=== PATIENT | male | born 1985 ===

== ENCOUNTER 2018-10-13 21:50 | Observation (INO) | payer SELFPAY ==
[2018-10-13] MEDS ORDERED: Labetalol 5mg/ml (4ml) ONE (22:21)
[2018-10-13] MEDS ORDERED: Labetalol 25mg/5ml Syringe IVP STA (22:23)
[2018-10-13 22:37] LABS: BASO % 0.5 % (0.0-2.0); EOS # 0.1 K/uL (0.0-0.7); EOS % 1.5 % (0.0-4.0); HEMOGLOBIN 13.6 g/dL (12.0-18.0); LYMPH # 2.4 K/uL (1.0-4.3); LYMPH % 27.7 % (20.0-40.0); MEAN CORPUSCULAR HEMOGLOBIN 26.8 pg (27.0-31.0); MEAN CORPUSCULAR HGB CONC 33.1 g/dL (33.0-37.0); MEAN PLATELET VOLUME 9.1 fL (7.2-11.7); MONO # 0.5 K/uL (0.0-0.8); MONO % 6.2 % (0.0-10.0); NEUT # 5.6 K/uL (1.8-7.0); NEUT % 64.1 % (50.0-75.0); RBC 5.08 Mil/uL (4.40-5.90); RED CELL DISTRIBUTION WIDTH 13.7 % (11.5-14.5); WHITE BLOOD COUNT 8.8 K/uL (4.8-10.8)
[2018-10-13 22:48] LABS: ALB/GLOB RATIO 1.7 (1.0-2.1); ALBUMIN 4.7 g/dL (3.5-5.0); BLOOD UREA NITROGEN 24 mg/dL (9-20); CALCIUM 8.8 mg/dl (8.6-10.4); GFR NON-AFRICAN AMERICAN > 60
--- NOTE | 2018-10-13 22:56 | C.PDOC ---
History Of Present Illness 33 year old male with no prior PMHx, does not see a doctor, presents with intermittent bloody nose for the past 2 days. Patient began bleeding today at 4:45pm and did not resolve so called EMS. On arrival bleeding has resolved, he reports a headache but denies double vision, nausea, vomiting, or trouble breathing. Vitals show elevated blood pressure at 210/135, he states he has never been diagnosed with HTN. Time Seen by Provider: 10/13/18 22:16 Chief Complaint (Nursing): ENT Problem History Per: Patient History/Exam Limitations: None Onset/Duration Of Symptoms: Days, Intermittent Episodes Current Symptoms Are (Timing): Still Present Symptoms Have Been: Episodic Past Medical History Reviewed: Historical Data, Nursing Documentation, Vital Signs Vital Signs: Last Vital Signs Temp 98.2 F 10/13/18 21:59 Pulse 77 10/13/18 22:53 Resp 19 10/13/18 22:53 BP 177/115 H 10/13/18 22:53 Pulse Ox 97 10/13/18 22:53 Primary Care Provider: FAMILY PROVIDER,NO Family History: States: Unknown Family Hx - Social History Hx Alcohol Use: No Hx Substance Use: No - Immunization History Hx Influenza Vaccination: No Hx Pneumococcal Vaccination: No Review Of Systems Constitutional: Negative for: Fever, Chills Eyes: Negative for: Vision Change Cardiovascular: Negative for: Chest Pain, Palpitations Respiratory: Negative for: Shortness of Breath Gastrointestinal: Negative for: Nausea, Vomiting Neurological: Positive for: Headache Physical Exam - Physical Exam Appears: Non-toxic Skin: Normal Color, Warm Head: Atraumatic, Normacephalic Eye(s): bilateral: Normal Inspection Nose: Other (Dried blood in nostrils) Oral Mucosa: Moist Neck: Normal, Supple Chest: Symmetrical, No Tenderness Cardiovascular: Rhythm Regular Respiratory: Normal Breath Sounds, No Rales, No Rhonchi, No Wheezing Gastrointestinal/Abdominal: Soft, No Tenderness Neurological/Psych: Oriented x3, Normal Speech ED Course And Treatment - Laboratory Results Result Diagrams: 10/13/18 22:28 10/13/18 22:28 Lab Results: Total Bilirubin 1.0 mg/dL (0.2-1.3) 10/13/18 22:28 Total Protein 7.5 g/dL (6.3-8.3) 05/21/19 22:28 Albumin 4.7 g/dL (3.5-5.0) 10/13/18 22:28 Globulin 2.8 gm/dL (2.2-3.9) 10/13/18 22:28 Albumin/Globulin Ratio 1.7 (1.0-2.1) 10/13/18 22:28 Lab Interpretation: No Acute Changes ECG: Interpreted By Me ECG Rhythm: Sinus Rhythm (with left axis deviation), ST/T Changes (inversions laterall I, AVL, V5-6) ECG Interpretation: Abnormal O2 Sat by Pulse Oximetry: 97 (Room air) Pulse Ox Interpretation: Normal Progress Note: CT head, blood work, EKG, and urinalysis ordered. Labetalol administered. Reevaluation Time: 23:56 Reassessment Condition: Improved (BP decreased to 166/109 after labetolol but now increased to 177/115. CT pending.) - Physician Consult Information Physician Contacted: Kelly Vallejo Outcome Of Conversation: Patient to be admitted for management of hypertension with evidence of cardiac ischemia on EKG. Disposition - Disposition Disposition: HOSPITALIZED Disposition Time: 00:03 Condition: IMPROVED - Clinical Impression Clinical Impression: Hypertensive urgency, malignant, Epistaxis, Headache - Scribe Statement The provider has reviewed the documentation as recorded by the Scribkody Rivera All medical record entries made by the Ceceliaibkody were at my direction and personally dictated by me. I have reviewed the chart and agree that the record accurately reflects my personal performance of the history, physical exam, medical decision making, and the department course for this patient. I have also personally directed, reviewed, and agree with the discharge instructions and disposition.
[2018-10-13 23:10] LABS: ALT/SGPT 52 U/L (21-72); AST/SGOT 61 U/L (17-59)
[2018-10-14 00:42] LABS: URINE BILIRUBIN NEGATIVE (NEGATIVE); URINE BLOOD NEGATIVE (NEGATIVE); URINE CLARITY Clear (Clear); URINE COLOR Yellow (YELLOW); URINE GLUCOSE (UA) NORMAL (Normal); URINE LEUKOCYTE ESTERASE NEG Leu/uL (Negative); URINE PROTEIN 1+ mg/dL (NEGATIVE); URINE UROBILINOGEN NORMAL mg/dL (0.2-1.0)
[2018-10-14 01:16] LABS: BARBITURATES, UR NEGATIVE (NEGATIVE); BENZODIAZEPINES, UR NEGATIVE (NEGATIVE); OPIATES, UR NEGATIVE (NEGATIVE); PHENCYCLIDINE, UR NEGATIVE (NEGATIVE)
--- NOTE | 2018-10-14 02:10 | CP.PCM.HP ---
<Jensen Long - Last Filed: 10/14/18 02:10> History of Present Illness - History of Present Illness History of Present Illness: 33M with no PMHx, presents with intermittent bloody nose for the past 2 days. Patient began bleeding today at 4:45pm and did not resolve so called EMS. On arrival bleeding had resolved but then started again at around 9pm, he reports a headache. P states he has never been diagnosed with HTN. Pt does not take any home medications and does not follow up with a physician. Pt does not report taking any home remedies for the nose bleed, only tried applying pressure. Denies every having this happen to him before. 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 Allergies: denies Present on Admission - Present on Admission Any Indicators Present on Admission: No Review of Systems - Review of Systems All systems: reviewed and no additional remarkable complaints except (as per HPI) Past Patient History - Past Social History Smoking Status: Never Smoked - PSYCHIATRIC Hx Substance Use: No - SURGICAL HISTORY Hx Surgeries: No - ANESTHESIA Hx Anesthesia: No Meds Allergies/Adverse Reactions: Allergies Allergy/AdvReac Type Severity Reaction Status Date / Time No Known Allergies Allergy Unverified 10/13/18 22:03 Physical Exam - Constitutional Appears: Non-toxic, No Acute Distress - Head Exam Head Exam: ATRAUMATIC, NORMAL INSPECTION - Eye Exam Eye Exam: EOMI, Normal appearance. absent: Scleral icterus Pupil Exam: NORMAL ACCOMODATION, PERRL - ENT Exam ENT Exam: Mucous Membranes Moist Additional comments: no bleeding per nose turbinates clear, some dried blood noted in L side - Neck Exam Neck exam: Positive for: Normal Inspection - Respiratory Exam Respiratory Exam: Clear to Auscultation Bilateral. absent: Rales, Wheezes, Stridor - Cardiovascular Exam Cardiovascular Exam: RRR, +S1, +S2 - GI/Abdominal Exam GI & Abdominal Exam: Soft. absent: Organomegaly, Tenderness - Extremities Exam Extremities exam: Positive for: pedal pulses present. Negative for: pedal edema - Neurological Exam Neurological exam: Alert, CN II-XII Intact, Oriented x3 - Psychiatric Exam Psychiatric exam: Normal Affect, Normal Mood - Skin Skin Exam: Normal Color, Warm Results - Vital Signs Recent Vital Signs: Last Vital Signs Temp 98.2 F 10/13/18 21:59 Pulse 73 10/13/18 23:52 Resp 22 10/13/18 23:52 BP 161/111 H 10/13/18 23:52 Pulse Ox 97 10/14/18 00:04 - Labs Result Diagrams: 10/13/18 22:28 10/13/18 22:28 Labs: Laboratory Results - last 24 hr 10/13/18 10/13/18 10/14/18 22:28 22:28 00:35 WBC 8.8 RBC 5.08 Hgb 13.6 Hct 41.1 MCV 81.0 MCH 26.8 L MCHC 33.1 RDW 13.7 Plt Count 226 MPV 9.1 Neut % (Auto) 64.1 Lymph % (Auto) 27.7 Bay % (Auto) 6.2 Eos % (Auto) 1.5 Baso % (Auto) 0.5 Neut # (Auto) 5.6 Lymph # (Auto) 2.4 Bay # (Auto) 0.5 Eos # (Auto) 0.1 Baso # (Auto) 0.0 Sodium 141 Potassium 3.8 Chloride 103 Carbon Dioxide 23 Anion Gap 18 BUN 24 H Creatinine 0.9 Est GFR ( Amer) > 60 Est GFR (Non-Af Amer) > 60 Random Glucose 99 Calcium 8.8 Total Bilirubin 1.0 AST 61 H ALT 52 Alkaline Phosphatase 50 Total Protein 7.5 Albumin 4.7 Globulin 2.8 Albumin/Globulin Ratio 1.7 Urine Color Yellow Urine Clarity Clear Urine pH 5.0 Ur Specific [place] 1.019 Urine Protein 1+ H Urine Glucose (UA) Normal Urine Ketones Negative Urine Blood Negative Urine Nitrate Negative Urine Bilirubin Negative Urine Urobilinogen Normal Ur Leukocyte Esterase Neg Urine WBC (Auto) 1 Urine Opiates Screen Urine Methadone Screen Ur Barbiturates Screen Ur Phencyclidine Scrn Ur Amphetamines Screen U Benzodiazepines Scrn U Oth Cocaine Metabols U Cannabinoids Screen 10/14/18 00:35 WBC RBC Hgb Hct MCV MCH MCHC RDW Plt Count MPV Neut % (Auto) Lymph % (Auto) Bay % (Auto) Eos % (Auto) Baso % (Auto) Neut # (Auto) Lymph # (Auto) Bay # (Auto) Eos # (Auto) Baso # (Auto) Sodium Potassium Chloride Carbon Dioxide Anion Gap BUN Creatinine Est GFR ( Amer) Est GFR (Non-Af Amer) Random Glucose Calcium Total Bilirubin AST ALT Alkaline Phosphatase Total Protein Albumin Globulin Albumin/Globulin Ratio Urine Color Urine Clarity Urine pH Ur Specific [place] Urine Protein Urine Glucose (UA) Urine Ketones Urine Blood Urine Nitrate Urine Bilirubin Urine Urobilinogen Ur Leukocyte Esterase Urine WBC (Auto) Urine Opiates Screen Negative Urine Methadone Screen Negative Ur Barbiturates Screen Negative Ur Phencyclidine Scrn Negative Ur Amphetamines Screen Negative U Benzodiazepines Scrn Negative U Oth Cocaine Metabols Negative U Cannabinoids Screen Negative Assessment & Plan - Assessment and Plan (Free Text) Assessment: 33M admitted for Hypertensive Urgency Plan: Hypertensive Urgency -given labetalol 20 IVP in ED -BP now 170s/100s -Clonidine 0.1 q8 PO -monitor Nose Bleed -resolved -f/u coags Non Compliance -f/u TSH, Lipids, A1C PPx no anti coag at this time due to nose bleeds no GI ppx indicated HHD CK PGY1 d/w Dr Vallejo <Kelly Vallejo N - Last Filed: 10/14/18 04:49> Results - Vital Signs Recent Vital Signs: Last Vital Signs Temp 98.4 F 10/14/18 04:04 Pulse 67 10/14/18 04:04 Resp 20 10/14/18 04:04 BP 153/97 H 10/14/18 04:04 Pulse Ox 99 10/14/18 04:04 - Labs Result Diagrams: 10/13/18 22:28 10/13/18 22:28 Labs: Laboratory Results - last 24 hr 10/13/18 10/13/18 10/14/18 22:28 22:28 00:35 WBC 8.8 RBC 5.08 Hgb 13.6 Hct 41.1 MCV 81.0 MCH 26.8 L MCHC 33.1 RDW 13.7 Plt Count 226 MPV 9.1 Neut % (Auto) 64.1 Lymph % (Auto) 27.7 Bay % (Auto) 6.2 Eos % (Auto) 1.5 Baso % (Auto) 0.5 Neut # (Auto) 5.6 Lymph # (Auto) 2.4 Bay # (Auto) 0.5 Eos # (Auto) 0.1 Baso # (Auto) 0.0 Sodium 141 Potassium 3.8 Chloride 103 Carbon Dioxide 23 Anion Gap 18 BUN 24 H Creatinine 0.9 Est GFR ( Amer) > 60 Est GFR (Non-Af Amer) > 60 Random Glucose 99 Hemoglobin A1c Calcium 8.8 Total Bilirubin 1.0 AST 61 H ALT 52 Alkaline Phosphatase 50 Total Protein 7.5 Albumin 4.7 Globulin 2.8 Albumin/Globulin Ratio 1.7 Triglycerides Cholesterol LDL Cholesterol Direct HDL Cholesterol TSH 3rd Generation Urine Color Yellow Urine Clarity Clear Urine pH 5.0 Ur Specific [place] 1.019 Urine Protein 1+ H Urine Glucose (UA) Normal Urine Ketones Negative Urine Blood Negative Urine Nitrate Negative Urine Bilirubin Negative Urine Urobilinogen Normal Ur Leukocyte Esterase Neg Urine WBC (Auto) 1 Urine Opiates Screen Urine Methadone Screen Ur Barbiturates Screen Ur Phencyclidine Scrn Ur Amphetamines Screen U Benzodiazepines Scrn U Oth Cocaine Metabols U Cannabinoids Screen 10/14/18 10/14/18 10/14/18 00:35 02:46 02:46 WBC RBC Hgb Hct MCV MCH MCHC RDW Plt Count MPV Neut % (Auto) Lymph % (Auto) Bay % (Auto) Eos % (Auto) Baso % (Auto) Neut # (Auto) Lymph # (Auto) Bay # (Auto) Eos # (Auto) Baso # (Auto) Sodium Potassium Chloride Carbon Dioxide Anion Gap BUN Creatinine Est GFR ( Amer) Est GFR (Non-Af Amer) Random Glucose Hemoglobin A1c 5.9 Calcium Total Bilirubin AST ALT Alkaline Phosphatase Total Protein Albumin Globulin Albumin/Globulin Ratio Triglycerides 193 H Cholesterol 200 H LDL Cholesterol Direct 131 H HDL Cholesterol 33 TSH 3rd Generation 6.87 H Urine Color Urine Clarity Urine pH Ur Specific [place] Urine Protein Urine Glucose (UA) Urine Ketones Urine Blood Urine Nitrate Urine Bilirubin Urine Urobilinogen Ur Leukocyte Esterase Urine WBC (Auto) Urine Opiates Screen Negative Urine Methadone Screen Negative Ur Barbiturates Screen Negative Ur Phencyclidine Scrn Negative Ur Amphetamines Screen Negative U Benzodiazepines Scrn Negative U Oth Cocaine Metabols Negative U Cannabinoids Screen Negative Attending/Attestation - Attestation I have fully participated in the care of the patient.: Yes I have reviewed all pertinent clinical information: Yes Notes (Text): 10/14/18 04:48 pt was seen and managed with with resident by me.
[2018-10-14 04:23] VITALS: RESP 20
[2018-10-14 04:48] LABS: INR 1.1 (0.92-1.08); PARTIAL THROMBOPLASTIN TIME 33.4 SECONDS (21-34); PROTHROMBIN TIME 12.1 SECONDS (9.7-12.2)
[2018-10-14 06:37] LABS: ALB/GLOB RATIO 1.8 (1.0-2.1); ALBUMIN 4.2 g/dL (3.5-5.0); ALT/SGPT 48 U/L (21-72); AST/SGOT 35 U/L (17-59); BLOOD UREA NITROGEN 22 mg/dL (9-20); CALCIUM 8.3 mg/dl (8.6-10.4); GFR NON-AFRICAN AMERICAN > 60
[2018-10-14 06:50] LABS: CK-MB 2.77 ng/mL (0.0-3.38); TROPONIN I 0.051 ng/mL (0.00-0.120)
[2018-10-14 06:51] LABS: BASO % 0.3 % (0.0-2.0); EOS # 0.1 K/uL (0.0-0.7); EOS % 1.2 % (0.0-4.0); HEMOGLOBIN 12.7 g/dL (12.0-18.0); LYMPH # 1.8 K/uL (1.0-4.3); LYMPH % 27.6 % (20.0-40.0); MEAN CELL VOLUME 78.9 fL (80.0-94.0); MEAN CORPUSCULAR HEMOGLOBIN 27.4 pg (27.0-31.0); MEAN CORPUSCULAR HGB CONC 34.7 g/dL (33.0-37.0); MONO # 0.4 K/uL (0.0-0.8); MONO % 5.5 % (0.0-10.0); NEUT # 4.4 K/uL (1.8-7.0); NEUT % 65.4 % (50.0-75.0); NRBC % 0.1 % (0.0-2.0); RBC 4.64 Mil/uL (4.40-5.90); RED CELL DISTRIBUTION WIDTH 13.5 % (11.5-14.5); WHITE BLOOD COUNT 6.7 K/uL (4.8-10.8)
--- NOTE | 2018-10-14 07:34 | CT ---
Date of service: 10/14/2018 PROCEDURE: CT HEAD WITHOUT CONTRAST. HISTORY: Headache COMPARISON: None available. TECHNIQUE: Axial computed tomography images were obtained through the head/brain without intravenous contrast. Radiation dose: Total exam DLP = 1309.24 mGy-cm. This CT exam was performed using one or more of the following dose reduction techniques: Automated exposure control, adjustment of the mA and/or kV according to patient size, and/or use of iterative reconstruction technique. FINDINGS: HEMORRHAGE: No intracranial hemorrhage. BRAIN: No mass effect or edema. No atrophy or chronic microvascular ischemic changes. VENTRICLES: Unremarkable. No hydrocephalus. CALVARIUM: Unremarkable. PARANASAL SINUSES: Moderate mucosal thickening with fluid levels in the bilateral maxillary sinuses. 1.1 centimeter mucosal retention cyst and or polyp in the left maxillary sinus. Mild mucosal thickening of the sphenoid sinus. Moderate mucosal thickening and opacification of the ethmoid air cells. MASTOID AIR CELLS: Unremarkable as visualized. No inflammatory changes. OTHER FINDINGS: None. IMPRESSION: No acute intracranial abnormality. Sinus mucosal disease. If symptoms persists, consider correlation with MRI. A preliminary report was generated at 3:14 a.m. on 10/14/[address] Myrtle Vergara from [facility].
[2018-10-14 08:06] VITALS: TEMP 97.9; O2SAT 98
[2018-10-14 09:17] VITALS: BP 156/95; PULSE 73
[2018-10-14] MEDS: Potassium Chloride 20 mEq ER Tab PO SCH ×2 (10:30→12:01)
--- NOTE | 2018-10-14 12:00 | CP.PCM.DIS ---
<Fredy Dumont - Last Filed: 10/14/18 16:59> Provider - Provider Date of Admission: 10/14/18 00:07 Attending physician: Sumaya Reilly MD Primary care physician: none Consults: none Time Spent in preparation of Discharge (in minutes): 35 Diagnosis - Discharge Diagnosis (1) Hyperlipidemia Status: Acute (2) Impaired glucose tolerance Status: Acute (3) Epistaxis Status: Resolved (4) Hypertensive urgency, malignant Status: Resolved (5) Subclinical hypothyroidism Status: Acute Hospital Course - Lab Results Lab Results: Most Recent Lab Values WBC 6.7 K/uL (4.8-10.8) 10/14/18 06:21 RBC 4.64 Mil/uL (4.40-5.90) 10/14/18 06:21 Hgb 12.7 g/dL (12.0-18.0) 10/14/18 06:21 Hct 36.6 % (35.0-51.0) 10/14/18 06:21 MCV 78.9 fL (80.0-94.0) L D 10/14/18 06:21 MCH 27.4 pg (27.0-31.0) 10/14/18 06:21 MCHC 34.7 g/dL (33.0-37.0) 10/14/18 06:21 RDW 13.5 % (11.5-14.5) 10/14/18 06:21 Plt Count 212 K/uL (130-400) 10/14/18 06:21 MPV 9.0 fL (7.2-11.7) 10/14/18 06:21 Neut % (Auto) 65.4 % (50.0-75.0) 10/14/18 06:21 Lymph % (Auto) 27.6 % (20.0-40.0) 10/14/18 06:21 Gordon % (Auto) 5.5 % (0.0-10.0) 10/14/18 06:21 Eos % (Auto) 1.2 % (0.0-4.0) 10/14/18 06:21 Baso % (Auto) 0.3 % (0.0-2.0) 10/14/18 06:21 Neut # (Auto) 4.4 K/uL (1.8-7.0) 10/14/18 06:21 Lymph # (Auto) 1.8 K/uL (1.0-4.3) 10/14/18 06:21 Gordon # (Auto) 0.4 K/uL (0.0-0.8) 10/14/18 06:21 Eos # (Auto) 0.1 K/uL (0.0-0.7) 10/14/18 06:21 Baso # (Auto) 0.0 K/uL (0.0-0.2) 10/14/18 06:21 PT 12.1 SECONDS (9.7-12.2) 10/14/18 01:09 INR 1.10 (0.92-1.08) H 10/14/18 01:09 APTT 33.4 SECONDS (21-34) 10/14/18 01:09 Sodium 141 mmol/L (132-148) 10/14/18 06:21 Potassium 3.4 mmol/L (3.6-5.2) L 10/14/18 06:21 Chloride 101 mmol/L (98-107) 10/14/18 06:21 Carbon Dioxide 26 mmol/L (22-30) 10/14/18 06:21 Anion Gap 17 (10-20) 10/14/18 06:21 BUN 22 mg/dL (9-20) H 10/14/18 06:21 Creatinine 0.8 mg/dL (0.8-1.5) 10/14/18 06:21 Est GFR ( Amer) > 60 10/14/18 06:21 Est GFR (Non-Af Amer) > 60 10/14/18 06:21 Random Glucose 96 mg/dL (75-110) 10/14/18 06:21 Hemoglobin A1c 5.9 % (4.2-6.5) 10/14/18 02:46 Calcium 8.3 mg/dl (8.6-10.4) L 10/14/18 06:21 Total Bilirubin 0.5 mg/dL (0.2-1.3) 10/14/18 06:21 AST 35 U/L (17-59) 10/14/18 06:21 ALT 48 U/L (21-72) 10/14/18 06:21 Alkaline Phosphatase 51 U/L (38-126) 10/14/18 06:21 Total Creatine Kinase 690 U/L (55-170) H 10/14/18 06:21 CK-MB (Mass) 2.77 ng/mL (0.0-3.38) 10/14/18 06:21 Troponin I 0.0510 ng/mL (0.00-0.120) 10/14/18 06:21 Total Protein 6.6 g/dL (6.3-8.3) 10/14/18 06:21 Albumin 4.2 g/dL (3.5-5.0) 10/14/18 06:21 Globulin 2.3 gm/dL (2.2-3.9) 10/14/18 06:21 Albumin/Globulin Ratio 1.8 (1.0-2.1) 10/14/18 06:21 Triglycerides 193 mg/dL (0-149) H 10/14/18 02:46 Cholesterol 200 mg/dL (0-199) H 10/14/18 02:46 LDL Cholesterol Direct 131 mg/dL (0-129) H 10/14/18 02:46 HDL Cholesterol 33 mg/dL (30-70) 10/14/18 02:46 TSH 3rd Generation 6.87 mIU/L (0.46-4.68) H 10/14/18 02:46 Urine Color Yellow (YELLOW) 10/14/18 00:35 Urine Clarity Clear (Clear) 10/14/18 00:35 Urine pH 5.0 (5.0-8.0) 10/14/18 00:35 Ur Specific Merna 1.019 (1.003-1.030) 10/14/18 00:35 Urine Protein 1+ mg/dL (NEGATIVE) H 10/14/18 00:35 Urine Glucose (UA) Normal mg/dL (Normal) 10/14/18 00:35 Urine Ketones Negative mg/dL (NEGATIVE) 10/14/18 00:35 Urine Blood Negative (NEGATIVE) 10/14/18 00:35 Urine Nitrate Negative (NEGATIVE) 10/14/18 00:35 Urine Bilirubin Negative (NEGATIVE) 10/14/18 00:35 Urine Urobilinogen Normal mg/dL (0.2-1.0) 10/14/18 00:35 Ur Leukocyte Esterase Neg Lacy/uL (Negative) 10/14/18 00:35 Urine WBC (Auto) 1 /hpf (0-5) 10/14/18 00:35 Urine Opiates Screen Negative (NEGATIVE) 10/14/18 00:35 Urine Methadone Screen Negative (NEGATIVE) 10/14/18 00:35 Ur Barbiturates Screen Negative (NEGATIVE) 10/14/18 00:35 Ur Phencyclidine Scrn Negative (NEGATIVE) 10/14/18 00:35 Ur Amphetamines Screen Negative (NEGATIVE) 10/14/18 00:35 U Benzodiazepines Scrn Negative (NEGATIVE) 10/14/18 00:35 U Oth Cocaine Metabols Negative (NEGATIVE) 10/14/18 00:35 U Cannabinoids Screen Negative (NEGATIVE) 10/14/18 00:35 - Hospital Course Hospital Course: HPI at time of admission: "33M with no PMHx, presents with intermittent bloody nose for the past 2 days. Patient began bleeding today at 4:45pm and did not resolve so called EMS. On arrival bleeding had resolved but then started again at around 9pm, he reports a headache. P states he has never been diagnosed with HTN. Pt does not take any home medications and does not follow up with a physician. Pt does not report taking any home remedies for the nose bleed, only tried applying pressure. Denies every having this happen to him before. Pt presented in ED w/ a BP of 210/135. ROS: Pos+ headache, poor medical follow up, nose bleed, Neg - double vision, nausea, vomiting, CP, SOB, FC, sick contact, drug use via nose, syncope, falls" Hospital Course: Pertinent imaging: -CT head: negative for acute findings -EKG: NSR at 84 bpm, prolonged QT 467. Pt was admitted for management of hypertensive urgency. Pt was given IV medications in ED to lower BP on presentation. Was initially placed on Clonidine then was switched to Lisinopril with improvement of HTN. Epistaxis resolved as well on day of discharge. Pt's symptoms resolved on day of discharge. In terms of work-up, pt demonstrated elevated lipid panel, A1c 5.9 (pre- diabetic), and elevated TSH with normal T4. Pt was advised on diet and lifestyle modification to improve his cholesterol, blood sugar, and management of HTN. Pt was discharged to home in stable condition on 10/14/18 with instructions to f/u at [facility] for appt on 10/22/18 at 9:00 am to establish care. Pt was given prescription of Lisinopril on discharge to continue taking at home. For further details of hospital course, please refer to the hospital EMR. Discharge Exam - Head Exam Head Exam: ATRAUMATIC, NORMAL INSPECTION - Eye Exam Eye Exam: EOMI, Normal appearance, PERRL - ENT Exam ENT Exam: Mucous Membranes Moist - Respiratory Exam Respiratory Exam: Clear to PA & Lateral, NORMAL BREATHING PATTERN, UNREMARKABLE - Cardiovascular Exam Cardiovascular Exam: REGULAR RHYTHM, +S1, +S2. absent: Gallop, Rubs, Systolic Murmur - GI/Abdominal Exam GI & Abdominal Exam: Normal Bowel Sounds, Soft, Unremarkable. absent: Distended, Tenderness - Extremities Exam Extremities exam: full ROM, normal capillary refill, normal inspection, pedal pulses present - Neurological Exam Neurological exam: Alert, CN II-XII Intact, Normal Gait, Oriented x3, Reflexes Normal - Skin Skin Exam: Dry, Intact, Normal Color, Warm Discharge Plan - Discharge Medications Prescriptions: Lisinopril [Zestril] 10 mg PO DAILY #30 tab - Follow Up Plan Condition: IMPROVED Disposition: HOME/ ROUTINE Instructions: Heart Healthy Diet, High Blood Pressure Emergencies, High Cholesterol (DC), Nosebleeds (DC), Lisinopril, Prediabetes (DC) Additional Instructions: Please go to the "[facility]" clinic in [place] on the first floor for the appointment by October 22 at nine in the morning. Arrive thirty minutes before the appointment to write the papers. You have a new prescription for high blood pressure. The medicine is "Lisinopril". Take this medicine once every day. Watch your food and exercise daily for thirty minutes each day for five days each week. It is important for good health.If you have nose bleed or headache please call your doctor or go to the nearest emergency room. Por favor, va a la clinica de "[facility]" en [place] en el primer piso para la koffi por el treinta de gauthier a las nueve en la manana. Llega a las treinta minutos antes de la koffi para escribir los papeles. Tiene kenyetta prescripccion nueva para la precion de la liliana jody. La medicina es "Lisinopril". Kayla la medicina kenyetta vez cada kat. Emy lewis comida y hace ejercicios en la shameka para treinta minutos cada kat por jeffry sotelo cada semana. Es mas importante para buen ashli. Lida tiene symptomas de liliana de la nariz or tiene dolor de la vy, llama a la doctor primaria o va al hospital de departamento de la emergencia de cerca. Referrals: Sarina Ken MD [Staff Provider] - <Sumaya Reilly - Last Filed: 10/14/18 17:52> Provider - Provider Date of Admission: 10/14/18 00:07 Attending physician: Sumaya Reilly MD Hospital Course - Lab Results Lab Results: Most Recent Lab Values WBC 6.7 K/uL (4.8-10.8) 10/14/18 06:21 RBC 4.64 Mil/uL (4.40-5.90) 10/14/18 06:21 Hgb 12.7 g/dL (12.0-18.0) 10/14/18 06:21 Hct 36.6 % (35.0-51.0) 10/14/18 06:21 MCV 78.9 fL (80.0-94.0) L D 10/14/18 06:21 MCH 27.4 pg (27.0-31.0) 10/14/18 06:21 MCHC 34.7 g/dL (33.0-37.0) 10/14/18 06:21 RDW 13.5 % (11.5-14.5) 10/14/18 06:21 Plt Count 212 K/uL (130-400) 10/14/18 06:21 MPV 9.0 fL (7.2-11.7) 10/14/18 06:21 Neut % (Auto) 65.4 % (50.0-75.0) 10/14/18 06:21 Lymph % (Auto) 27.6 % (20.0-40.0) 10/14/18 06:21 Gordon % (Auto) 5.5 % (0.0-10.0) 10/14/18 06:21 Eos % (Auto) 1.2 % (0.0-4.0) 10/14/18 06:21 Baso % (Auto) 0.3 % (0.0-2.0) 10/14/18 06:21 Neut # (Auto) 4.4 K/uL (1.8-7.0) 10/14/18 06:21 Lymph # (Auto) 1.8 K/uL (1.0-4.3) 10/14/18 06:21 Gordon # (Auto) 0.4 K/uL (0.0-0.8) 10/14/18 06:21 Eos # (Auto) 0.1 K/uL (0.0-0.7) 10/14/18 06:21 Baso # (Auto) 0.0 K/uL (0.0-0.2) 10/14/18 06:21 PT 12.1 SECONDS (9.7-12.2) 10/14/18 01:09 INR 1.10 (0.92-1.08) H 10/14/18 01:09 APTT 33.4 SECONDS (21-34) 10/14/18 01:09 Sodium 141 mmol/L (132-148) 10/14/18 06:21 Potassium 3.4 mmol/L (3.6-5.2) L 10/14/18 06:21 Chloride 101 mmol/L (98-107) 10/14/18 06:21 Carbon Dioxide 26 mmol/L (22-30) 10/14/18 06:21 Anion Gap 17 (10-20) 10/14/18 06:21 BUN 22 mg/dL (9-20) H 10/14/18 06:21 Creatinine 0.8 mg/dL (0.8-1.5) 10/14/18 06:21 Est GFR ( Amer) > 60 10/14/18 06:21 Est GFR (Non-Af Amer) > 60 10/14/18 06:21 Random Glucose 96 mg/dL (75-110) 10/14/18 06:21 Hemoglobin A1c 5.9 % (4.2-6.5) 10/14/18 02:46 Calcium 8.3 mg/dl (8.6-10.4) L 10/14/18 06:21 Total Bilirubin 0.5 mg/dL (0.2-1.3) 10/14/18 06:21 AST 35 U/L (17-59) 10/14/18 06:21 ALT 48 U/L (21-72) 10/14/18 06:21 Alkaline Phosphatase 51 U/L (38-126) 10/14/18 06:21 Total Creatine Kinase 690 U/L (55-170) H 10/14/18 06:21 CK-MB (Mass) 2.77 ng/mL (0.0-3.38) 10/14/18 06:21 Troponin I 0.0510 ng/mL (0.00-0.120) 10/14/18 06:21 Total Protein 6.6 g/dL (6.3-8.3) 10/14/18 06:21 Albumin 4.2 g/dL (3.5-5.0) 10/14/18 06:21 Globulin 2.3 gm/dL (2.2-3.9) 10/14/18 06:21 Albumin/Globulin Ratio 1.8 (1.0-2.1) 10/14/18 06:21 Triglycerides 193 mg/dL (0-149) H 10/14/18 02:46 Cholesterol 200 mg/dL (0-199) H 10/14/18 02:46 LDL Cholesterol Direct 131 mg/dL (0-129) H 10/14/18 02:46 HDL Cholesterol 33 mg/dL (30-70) 10/14/18 02:46 Free T4 0.86 ng/dL (0.78-2.19) 10/14/18 11:30 TSH 3rd Generation 6.87 mIU/L (0.46-4.68) H 10/14/18 02:46 Urine Color Yellow (YELLOW) 10/14/18 00:35 Urine Clarity Clear (Clear) 10/14/18 00:35 Urine pH 5.0 (5.0-8.0) 10/14/18 00:35 Ur Specific Merna 1.019 (1.003-1.030) 10/14/18 00:35 Urine Protein 1+ mg/dL (NEGATIVE) H 10/14/18 00:35 Urine Glucose (UA) Normal mg/dL (Normal) 10/14/18 00:35 Urine Ketones Negative mg/dL (NEGATIVE) 10/14/18 00:35 Urine Blood Negative (NEGATIVE) 10/14/18 00:35 Urine Nitrate Negative (NEGATIVE) 10/14/18 00:35 Urine Bilirubin Negative (NEGATIVE) 10/14/18 00:35 Urine Urobilinogen Normal mg/dL (0.2-1.0) 10/14/18 00:35 Ur Leukocyte Esterase Neg Lacy/uL (Negative) 10/14/18 00:35 Urine WBC (Auto) 1 /hpf (0-5) 10/14/18 00:35 Urine Opiates Screen Negative (NEGATIVE) 10/14/18 00:35 Urine Methadone Screen Negative (NEGATIVE) 10/14/18 00:35 Ur Barbiturates Screen Negative (NEGATIVE) 10/14/18 00:35 Ur Phencyclidine Scrn Negative (NEGATIVE) 10/14/18 00:35 Ur Amphetamines Screen Negative (NEGATIVE) 10/14/18 00:35 U Benzodiazepines Scrn Negative (NEGATIVE) 10/14/18 00:35 U Oth Cocaine Metabols Negative (NEGATIVE) 10/14/18 00:35 U Cannabinoids Screen Negative (NEGATIVE) 10/14/18 00:35 Attending/Attestation - Attestation I have personally seen and examined this patient.: Yes I have fully participated in the care of the patient.: Yes I have reviewed all pertinent clinical information, including history, physical exam and plan: Yes Notes (Text): seen and examined with the resident. Discussed about loosing weight,low salt,low fat diet and exercise. Risk of life threatening complications due to uncontrolled hypertension was explained to the patient .patient understood the concerns. We will discharge on lisinopril. patient will be following us in the medical clinic to monitor BP,check his lipids and thyroid status
--- NOTE | 2018-10-14 23:55 | CARD ---
APPROVED REPORT Date of service: 10/13/2018 EKG Measurement Heart [id number] <Conclusion> Normal sinus rhythm Left axis deviation Moderate voltage criteria for LVH, may be normal variant T wave abnormality, consider lateral ischemia Prolonged QT Abnormal ECG
== END 2018-10-14 13:38 | disposition home or self-care (01) ==
LOC: C.ER 21:50 → C.9E 10-14 00:07 → C.5S 10-14 01:45
PROVIDERS: ADMIT Internal Medicine; ATTEND Internal Medicine
DX: I16.0 Hypertensive urgency (principal); R04.0 Epistaxis; E02 Subclinical iodine-deficiency hypothyroidism; I10 Essential (primary) hypertension; H53.2 Diplopia; R06.02 Shortness of breath; R73.03 Prediabetes; E78.5 Hyperlipidemia, unspecified
CPT/HCPCS: 36415; 70450; 80053; 80061; 81001; 83036; 84439; 84443; 84484; 85025; 85610; 85730; 93005; 96374; G0378; G0480